=== PATIENT | male | born 1970 | race Caucasian/White ===

== ENCOUNTER 2019-06-23 09:19 | Emergency (ER) | payer OTHER ==
[~2019-06-23] VITALS: Ht 180.3 cm; Wt 80.7 kg
--- NOTE | 2019-06-23 09:56 | NUR ---
DR QUINTANILLA AT BEDSIDE FOR EVAL
[2019-06-23] MEDS ORDERED: KETOROLAC TROMETHAMINE INJ 60 MG/2 ML VIAL IM ONE (10:00)
[2019-06-23] MEDS ORDERED: ONDANSETRON 4 MG TAB.RAPDIS SL ONE (10:00)
--- NOTE | 2019-06-23 10:06 | NUR ---
PT TO RADIOLOGY FOR ABDOMINAL CT SCAN VIA WHEELCHAIR.
[2019-06-23 11:04] VITALS: BP 132/82
--- NOTE | 2019-06-23 11:04 | NUR ---
Patient discharged to home in stable condition. Written and verbal after care instructions given. Patient verbalizes understanding of instruction.
== END 2019-06-23 11:04 | disposition home or self-care (01) ==
LOC: ER 09:19
DX: N13.2 Hydronephrosis with renal and ureteral calculous obstruction (principal); F17.200 Nicotine dependence, unspecified, uncomplicated; Z87.442 Personal history of urinary calculi
CPT/HCPCS: J1885; Q0162